=== PATIENT | female | born 2000 | race Caucasian/White ===

== ENCOUNTER 2018-03-21 17:03 | Emergency (ER) | payer SELFPAY ==
[2018-03-21 17:09] VITALS: BP 101/54
--- NOTE | 2018-03-21 18:37 | ER Document Report ---
HPI - HPI Patient complains to provider of: Rash Time Seen by Provider: 03/21/18 17:38 Onset: Other - 4 days Onset/Duration: Persistent Quality of pain: Burning Pain Level: 4 Context: Patient presents complaining of painful rash to the perineum for the past 4 days. Patient also reports dysuria although states that she has not voided since 1:00 in the morning. Patient denies any fever. Patient denies any previous history of genital herpes. Patient is visiting her boyfriend here from [place]. Associated Symptoms: Other - Rash to perineum, difficulty voiding. denies: Fever, Nausea, Vomiting Exacerbated by: Denies Relieved by: Denies Similar symptoms previously: No Recently seen / treated by doctor: No - ROS ROS below otherwise negative: Yes Systems Reviewed and Negative: Yes All other systems reviewed and negative - CONSTITUTIONAL Constitutional: DENIES: Fever, Chills - EENT EENT: DENIES: Sore Throat - RESPIRATORY Respiratory: DENIES: Coughing - GASTROINTESTINAL Gastrointestinal: DENIES: Abdominal Pain, Nausea, Patient vomiting - URINARY Urinary: REPORTS: Dysuria Notes: Inability to void for the past 18 hours - MUSCULOSKELETAL Musculoskeletal: DENIES: Back Pain - DERM Skin Color: Normal Skin Problems: Rash Past Medical History - General Information source: Patient - Social History Smoking Status: Never Smoker Frequency of alcohol use: None Drug Abuse: None Lives with: Family Family History: Reviewed & Not Pertinent Patient has suicidal ideation: No Patient has homicidal ideation: No Neurological Medical History: Reports: Hx Migraine Renal/ Medical History: Denies: Hx Peritoneal Dialysis Surgical Hx: Negative Vertical Provider Document - CONSTITUTIONAL Agree With Documented VS: Yes Exam Limitations: No Limitations General Appearance: WD/WN, No Apparent Distress - INFECTION CONTROL TRAVEL OUTSIDE OF THE [place] IN LAST 30 DAYS: No - HEENT HEENT: Atraumatic, Normocephalic - NECK Neck: Normal Inspection - RESPIRATORY Respiratory: Breath Sounds Normal, No Respiratory Distress - CARDIOVASCULAR Cardiovascular: Regular Rate, Regular Rhythm - REPRODUCTIVE Female Genitalia: Abnormal Inspection Notes: Patient with tender ulcerations to perineum and vaginal introitus, cream colored vaginal discharge - BACK Back: Normal Inspection - MUSCULOSKELETAL/EXTREMETIES Musculoskeletal/Extremeties: PROMISE FROM - NEURO Level of Consciousness: Awake, Alert, Appropriate Motor/Sensory: No Motor Deficit - DERM Integumentary: Warm, Dry, Rash - Tender ulcerations to perineum Course - Re-evaluation Re-evalutation: 03/21/18 19:07 Patient has been to the bathroom 3 times and has not been able to void. Patient states that she last voided 18 hours ago. Patient states she feels as though she needs to void but is unable to. Patient advised that she may need to have blood work as well as a catheter inserted to help her drain her bladder to prevent any kidney damage. Patient advised that she likely has herpes and needs to be treated and will likely need prophylactic treatment for possible exposure to gonorrhea and chlamydia given concern about current herpes infection. 03/21/18 19:28 Patient was seen to ambulate out of the department with her boyfriend. Suspect that patient likely eloped. Patient is not answering her phone after provider called number on her chart. 03/21/18 20:15 Patient has not returned to room, suspect patient has eloped. - Vital Signs Vital signs: Temp Pulse Resp BP Pulse Ox 98.3 F 100 16 101/54 L 98 03/21/18 17:08 03/21/18 17:08 03/21/18 17:08 03/21/18 17:08 03/21/18 17:08 Discharge - Discharge Clinical Impression: Urinary retention Genital herpes Qualifiers: Herpes simplex infection site: unspecified Qualified Code(s): A60.00 - Herpesviral infection of urogenital system, unspecified Disposition: ELOPED
[2018-03-21 18:45] LABS: T.VAGINALIS (WET MOUNT) NO TRICHOMONAS SEEN; YEAST (WET MOUNT) NO YEAST SEEN
[2018-03-21 18:46] LABS: BACTERIA (WET MOUNT) 4+ BACTERIA SEEN; EPITHELIALS (WET MOUNT) 3+ EPITHELIALS SEEN; RBCS (WET MOUNT) FEW RBCS SEEN; WBCS (WET MOUNT) 3+ WBCS SEEN
[2018-03-21 20:15] LABS: CHLAM PCR NOT DETECTED (NOT DETECT); GON PCR NOT DETECTED (NOT DETECT)
== END 2018-03-21 19:31 | disposition left against medical advice (07) ==
LOC: ER 17:03
DX: A60.00 Herpesviral infection of urogenital system, unspecified (principal); R33.9 Retention of urine, unspecified; R21 Rash and other nonspecific skin eruption; R30.0 Dysuria
CPT/HCPCS: 87210; 87250; 87491; 87591; 99281